=== PATIENT | male | born 1945 | race Caucasian/White ===

== ENCOUNTER 2017-06-09 10:47 | Emergency (ER) | payer MEDICARE, BC ==
[2017-06-09 11:34] VITALS: BP 150/106
[2017-06-09] MEDS ORDERED: HYDROcodone/ACETAMIN 5-325 MG* 1 TAB PO ONE (11:45)
[2017-06-09] MEDS ORDERED: Lidocaine 2% PF * 5 ML VIAL INJ ONE (12:50)
--- NOTE | 2017-06-09 13:19 | RAD ---
INDICATION: Laceration distal forearm/wrist COMPARISON: None TECHNIQUE: AP, lateral, and oblique views were obtained. FINDINGS: There is no acute fracture or focal bony lesion. The articular relationships are maintained. There is a laceration about the radial and volar aspect of the distal forearm and wrist. There is no foreign body. IMPRESSION: NO FRACTURE OR FOREIGN BODY.
--- NOTE | 2017-06-09 14:41 | UC ---
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 INJURY IS VERY PAINFUL. 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 LAST TETANUS SHOT 5YRS AGO. - History Of Current Complaint Chief Complaint: UCLaceration Stated Complaint: WRIST LAC Time Seen by Provider: 06/09/17 12:30 Hx Obtained From: Patient, Family/Teacher Specialist Laceration Location: Wrist - LEFT WRIST Mechanism Of Injury: Sharp Trauma Onset/Duration: Sudden Onset Severity: Moderate Aggravating Factors: Movement Related History: Dominant Hand Right - Allergies/Home Medications Allergies/Adverse Reactions: Allergies Allergy/AdvReac Type Severity Reaction Status Date / Time No Known Allergies Allergy Verified 06/09/17 11:34 PMH/Surg Hx/FS Hx/Imm Hx Previously Healthy: Yes - Surgical History Surgical History: Yes Surgery Procedure, Year, and Place: MENSICUS REPAIRS RIGHT AND LEFT SIDE, HEEL SCREWS LEFT FOOT - Family History Known Family History: Positive: None Negative: Blood Disorder - Social History Occupation: Retired Lives: With Family Alcohol Use: Rare Substance Use Type: None, Prescribed Substance Use Comment - Amount & Last Used: OXYCODONE AT 0700 Smoking Status (MU): Former Smoker Amount Used/How Often: 1 PPD X 14 YEARS Have You Smoked in the Last Year: No When Did the Patient Quit Smoking/Using Tobacco: 1974 Review of Systems Constitutional: Negative Skin: Other - LACERATION LEFT WRIST RADIAL ASPECT Eyes: Negative ENT: Negative Respiratory: Negative Cardiovascular: Negative Gastrointestinal: Negative Genitourinary: Negative Motor: Negative Neurovascular: Negative Musculoskeletal: Negative Neurological: Paresthesia, Numbness - LEFT THUMB Psychological: Negative All Other Systems Reviewed And Are Negative: Yes Physical Exam Triage Information Reviewed: Yes Appearance: Well-Appearing, No Pain Distress, Well-Nourished Vital Signs: Initial Vital Signs Pulse 83 06/09/17 11:30 Resp 20 06/09/17 11:30 BP 150/106 06/09/17 11:30 Pulse Ox 97 06/09/17 11:30 Vital Signs Reviewed: Yes Eye Exam: Normal ENT Exam: Normal ENT: Positive: Normal ENT inspection, Hearing grossly normal, TMs normal Dental Exam: Normal Neck exam: Normal Neck: Positive: Supple, Nontender, No Lymphadenopathy Respiratory Exam: Normal Respiratory: Positive: Chest non-tender, Lungs clear, Normal breath sounds, No respiratory distress Cardiovascular Exam: Normal Cardiovascular: Positive: RRR, No Murmur, Pulses Normal Abdominal Exam: Normal Musculoskeletal Exam: Normal Musculoskeletal: Positive: Strength Intact, ROM Intact, No Edema Neurological: Positive: Other: - PROXIMAL TO LACERATION, PAIN OUT OF PROPORTION TO SIMPLE LACERATION, POSSIBLE NERVE INJURY. FULL ROM. NUMBNESS IN LEFT THUMB. Psychological Exam: Normal Skin: Positive: Other - 5cm LACERATION LEFT WRIST RADIAL ASPECT Laceration Repair - Laceration Repair 1 Description: Linear Laceration Size After Repair: Length (cm) - 5, Width (mm) - 10, Depth (mm) - 12 Type Injection: Local Anesthesia Used: 2.0% Lido Cleansing Completed Via Routine Prep: Yes Irrigation With Pressure Irrigation Device: Yes Closure Material: Sutures - 7 Closure Method: Single Layer Suture Of: Skin, SQ Suture Type: Prolene Laceration Course/Dx - Course/Dx Course Of Treatment: PROXIMAL TO LACERATION, PAIN OUT OF PROPORTION TO SIMPLE LACERATION, POSSIBLE NERVE INJURY. FULL ROM. NUMBNESS IN LEFT THUMB. - Differential Dx - Laceration/Wound Differental Diagnoses: Cellulitis, Joint Infection, Laceration Provider Diagnoses: LEFT WRIST LACERATION; POSSIBLE NERVE INJURY - Physician Notification/Consults Instructed by Provider To: Have Pt Call For Appt. Discharge - Discharge Plan Condition: Stable Disposition: HOME Prescriptions: HYDROcodone/ACETAMIN 5-325 MG* [[place] 5-325 TAB*] 1 tab PO Q8H PRN #12 tab MDD THREE TABS PRN Reason: Pain Patient Education Materials: Care For Your Stitches (ED), Laceration (ED) Referrals: Rajinder Cortes MD [Medical Doctor] - Ilsa Abdullahi NP [Primary Care Provider] - Willy Hansen MD [Medical Doctor] - As Soon As Possible Additional Instructions: PLEASE HAVE SUTURES REMOVED IN TEN DAYS
== END 2017-06-09 14:30 | disposition home or self-care (01) ==
LOC: UCEAST 10:47
DX: S61.512A Laceration without foreign body of left wrist, initial encounter (principal); W26.1XXA Contact with sword or dagger, initial encounter; Y93.9 Activity, unspecified; Y99.9 Unspecified external cause status
CPT/HCPCS: 12002; 99212; G0463

== ENCOUNTER 2017-07-17 11:16 | Emergency (ER) | payer MEDICARE ==
[2017-07-17 11:26] VITALS: BP 167/111
[2017-07-17] MEDS ORDERED: Lidocaine 2% W/EPI 1:100,000* 20 ML MDV INJ ONE (11:46)
[2017-07-17] MEDS ORDERED: Lidocaine 2% W/EPI 1:100,000* 20 ML MDV ONE (11:47)
--- NOTE | 2017-07-17 12:16 | UC ---
Laceration HPI - History Of Current Complaint Chief Complaint: UCHeadInjury Stated Complaint: HEAD LACERATION Time Seen by Provider: 07/17/17 11:25 Hx Obtained From: Patient Laceration Location: Head Mechanism Of Injury: Sharp Trauma Severity: Mild Pain Intensity: 3 Pain Scale Used: 0-10 Numeric Aggravating Factors: Nothing Related History: Dominant Hand Right - Allergies/Home Medications Allergies/Adverse Reactions: Allergies Allergy/AdvReac Type Severity Reaction Status Date / Time No Known Allergies Allergy Verified 07/17/17 11:26 PMH/Surg Hx/FS Hx/Imm Hx Previously Healthy: Yes Other History Of: Hepatitis C - Surgical History Surgical History: Yes Surgery Procedure, Year, and Place: MENSICUS REPAIRS RIGHT AND LEFT SIDE, HEEL SCREWS LEFT FOOT - Family History Known Family History: Positive: None Negative: Blood Disorder - Social History Alcohol Use: Rare Substance Use Type: None, Prescribed Substance Use Comment - Amount & Last Used: OXYCODONE AT 0700 Smoking Status (MU): Former Smoker Amount Used/How Often: 1 PPD X 14 YEARS Have You Smoked in the Last Year: No When Did the Patient Quit Smoking/Using Tobacco: 1973 - Immunization History Most Recent Tetanus Shot: 2011 Review of Systems Constitutional: Negative Skin: Negative Eyes: Negative ENT: Negative Respiratory: Negative Cardiovascular: Negative Gastrointestinal: Negative Genitourinary: Negative Motor: Negative Neurovascular: Negative Musculoskeletal: Negative Neurological: Negative Psychological: Negative Is Patient Immunocompromised?: No All Other Systems Reviewed And Are Negative: Yes Physical Exam Triage Information Reviewed: Yes Appearance: Well-Appearing, No Pain Distress, Well-Nourished Vital Signs: Initial Vital Signs Temp 98.6 F 07/17/17 11:20 Pulse 78 07/17/17 11:20 Resp 18 07/17/17 11:20 BP 167/111 07/17/17 11:20 Pulse Ox 98 07/17/17 11:20 Vital Signs Reviewed: Yes Eyes: Positive: Conjunctiva Clear ENT: Positive: Hearing grossly normal. Negative: Nasal congestion, Nasal drainage, Trismus, Muffled/hoarse voice Respiratory: Positive: Lungs clear, Normal breath sounds, No respiratory distress Cardiovascular: Positive: RRR, No Murmur Musculoskeletal: Positive: ROM Intact, No Edema Neurological: Positive: Alert, Other: - left thumb numb-recent machete laceration Psychological Exam: Normal Skin Exam: Other - scalp lac Laceration Repair - Laceration Repair 1 Description: Linear Laceration Size After Repair: Length (cm) - 3, Width (mm) - 3, Depth (mm) - 3-4 Modified For Repair: No Type Injection: Local Anesthesia Used: 2.0% Lido Additive Used (in ml): Epi Cleansing Completed Via Routine Prep: Yes Irrigation With Pressure Irrigation Device: Yes Closure Material: Sutures Closure Method: Single Layer Suture Of: Skin - 4 5-0 nylon sutures Suture Type: Nylon Laceration Course/Dx - Differential Dx - Laceration/Wound Provider Diagnoses: scalp laceration. 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 Discharge - Discharge Plan Condition: Stable Disposition: HOME Patient Education Materials: Laceration (ED) Referrals: Gabby Estevez MD [Medical Doctor] - As Soon As Possible (about your nerve laceration) Additional Instructions: you may shower apply thin film of antibiotic ointment I like aquaphor healing ointment or polysporin sutures should be removed in about a week I suspect you lacerated a nerve last month (a branch of your radial nerve) and I suggest you see a hand specialist about this BP high today...probably due to being angry recheck at your next visit with your provider Images Head: 1 - curvalinear laceration
== END 2017-07-17 12:28 | disposition home or self-care (01) ==
LOC: UCEAST 11:16
DX: S01.01XA Laceration without foreign body of scalp, initial encounter (principal); S64.22XA Injury of radial nerve at wrist and hand level of left arm, initial encounter; W26.9XXA Contact with unspecified sharp object(s), initial encounter; Y93.9 Activity, unspecified; Y92.9 Unspecified place or not applicable; Z87.891 Personal history of nicotine dependence
CPT/HCPCS: 12002; 99211; G0463

== ENCOUNTER 2019-03-27 05:39 | Day surgery (SDC) | payer MEDICARE ==
[2019-03-27] MEDS ORDERED: Acetaminophen TAB* 325 MG ONE ×2 (05:55→08:57)
[2019-03-27] MEDS ORDERED: ceFAZolin 2 GM PREMIX in ORs 2 GM/50 ML BAG ONE (05:57)
[2019-03-27] MEDS ORDERED: Bupivacaine 0.5%* 50 ML VIAL ONE (06:59)
[2019-03-27] MEDS ORDERED: Lidocaine 2% PF* 10 ML AMP ONE (06:59)
[2019-03-27] MEDS ORDERED: Lidocaine 2% PF * 5 ML VIAL ONE (07:09)
[2019-03-27] MEDS ORDERED: fentaNYL* 50 MCG/ML 2 ML VIAL (100 MCG VIAL) ONE ×4 (07:09→09:35)
[2019-03-27] MEDS ORDERED: Midazolam* 1 MG/ML 2 ML VIAL (2 MG) ONE (07:09)
[2019-03-27] MEDS ORDERED: Propofol* 10 MG/ML 20 ML BTL ONE (07:09)
[2019-03-27] MEDS ORDERED: Propofol* 500 MG/50 ML BTL ONE (07:42)
[2019-03-27] MEDS ORDERED: Labetalol IV* 5 MG/ML 20 ML VIAL ONE (08:11)
[2019-03-27] MEDS ORDERED: oxyCODONE TAB* 5 MG TAB ONE (08:56)
[2019-03-27] MEDS ORDERED: Ketorolac INJ* 30 MG/ML 1 ML VIAL ONE (08:57)
[2019-03-27 10:14] VITALS: BP 150/89
--- NOTE | 2019-03-27 21:11 | OP ---
DATE OF OPERATION: 03/27/19 - [facility] DATE OF : 49 SURGEON: Kai Gloria MD LEGAL SECRETARY: Arianne Ritchie PA-C PRE-OP DIAGNOSIS: Painful left heel screws from previous subtalar fusion and lateral fibular bone spur. POST-OP DIAGNOSIS: Painful left heel screws from previous subtalar fusion and lateral fibular bone spur. OPERATIVE PROCEDURE: Shaving a bone spur, left distal fibula, and removal of the heel screws, left foot. DESCRIPTION OF PROCEDURE: The patient was taken to the operating room where local anesthesia was placed around his foot after the IV sedation. We made a 2- cm incision at the distal fibula directly over the distal fibular bone where rongeur was used to remove the prominent osteophyte. This area was closed with Monocryl and nylon sutures. The heel wound was opened about 3 cm in length directly over the insertion point of the heel screws. The screws were cannulated with the guide pin and then removed with 7.3-mm screwdriver. There was a good deal of bone purchase at this point and the bone threads had some difficulty backing up, but we were able to remove them routinely. We then irrigated this wound and closed with Monocryl and Prolene sutures. [id number]/[facility] #: [id number] [facility] CENTERFransisco
== END 2019-03-27 10:27 | disposition home or self-care (01) ==
LOC: OR 05:39
PROVIDERS: ATTEND Orthopaedic Surgery
DX: Z45.89 Encounter for adjustment and management of other implanted devices (principal); M79.672 Pain in left foot
CPT/HCPCS: 88300; A9270-GY; C1776; J0690; J1885; J2001; J2250; J2704; J3010; J3490

== ENCOUNTER 2024-07-20 07:59 | Observation (INO) ==
[~2024-07-20 07:59] MED LIST: Metoclopramide 5 MG/ML VIAL (10 mg) IV PRN; NS 0.45% 1000 ml BAG 1,000 ML IV SCH; Naloxone 0.4 mg VIAL 0.4 mg/ml 1 ml VIAL IV PRN; Ondansetron 4 mg VIAL 2 MG/ML 2 ml VIAL IV PRN
[2024-07-20] MEDS ORDERED: ceFAZolin 2 GM PREMIX 2 GM/50 ML BAG ONE (08:09)
[2024-07-20] MEDS ORDERED: Tranexamic Acid 1 GM/100ML BAG 2,000 MG/200 ML BAG IV ONE (08:09)
[2024-07-20] MEDS: Buffered Lidocaine 1% SYRIN 1 ml INTRADERM ONE (08:23)
[2024-07-20] MEDS: Scopolamine 1 mg/72hr PATCH TRANSDERM ONE (08:23)
[2024-07-20 08:42] LABS: Rapid COVID-19 Molecular Undetected (Undetected)
[2024-07-20] MEDS ORDERED: Dexamethasone IV 4 MG/ML VIAL 1 ml VIAL ONE (08:44)
[2024-07-20] MEDS ORDERED: ROPIVACAINE 5 MG/ML 30 ML BTL (0.5%) ONE ×2 (08:44→10:24)
[2024-07-20] MEDS ORDERED: Midazolam 2 mg/2 ml VIAL 1 mg/ml 2 ml VIAL (2 mg) ONE (08:44)
[2024-07-20] MEDS: Lactated Ringers 1000 ml BAG 1,000 ML IV SCH ×2 (08:51→17:47)
[2024-07-20] MEDS ORDERED: Albuterol/Ipratropium NEB.SOL (2.5/0.5 MG) 3 ML NEB.SOLN ONE (09:13)
[2024-07-20] MEDS ORDERED: fentaNYL 250 mcg/5 ml 50 MCG/ML 5 ml VIAL (250 MCG) ONE (11:15)
[2024-07-20] MEDS ORDERED: Lidocaine 2% PF 5 ML VIAL ONE (11:15)
[2024-07-20] MEDS ORDERED: Propofol 10 MG/ML 20 ML BTL ONE ×2 (11:15→12:20)
[2024-07-20] MEDS ORDERED: HYDROmorphone 0.5 MG/0.5 ML SYRINGE ONE ×2 (11:59→13:03)
[2024-07-20] MEDS ORDERED: fentaNYL 100 mcg/2 ml 50 MCG/ML VIAL ONE ×2 (14:45→15:06)
[2024-07-20] MEDS ORDERED: Ondansetron ODT 4 mg TAB 4 MG TAB PO PRN (14:45)
[2024-07-20] MEDS ORDERED: Magnesium Hydroxide LIQ 30 ML UDC PO PRN (14:45)
[2024-07-20] MEDS ORDERED: Ondansetron 4 mg VIAL 2 MG/ML 2 ml VIAL IV PRN (14:45)
[2024-07-20] MEDS ORDERED: Lactulose 30 ml UDC PO PRN (14:45)
[2024-07-20] MEDS ORDERED: Morphine 2 MG/ML SYRINGE IV PRN (14:45)
[2024-07-20] MEDS ORDERED: Calcium Carb (TUMS) 500 mg CHEW TAB PO PRN (14:45)
[2024-07-20] MEDS: fentaNYL 100 mcg/2 ml 50 MCG/ML VIAL IV PRN (14:49)
[2024-07-20] MEDS ORDERED: hydrALAZINE 20 mg/ml 1 ML Vial IV ONE (16:04)
[2024-07-20] MEDS: hydrALAZINE 20 mg/ml 1 ML Vial IV IV SLOW PU ONE (16:07)
[2024-07-20] MEDS ORDERED: HYDROmorphone 1 MG/1 ML SYRINGE IV SLOW PU PRN (16:10)
[2024-07-20] MEDS ORDERED: hydrALAZINE 20 mg/ml 1 ML Vial IV IV SLOW PU PRN (16:11)
[2024-07-20] MEDS ORDERED: HYDROmorphone 1 MG/1 ML SYRINGE ONE (16:21)
[2024-07-20] MEDS: HYDROmorphone 1 MG/1 ML SYRINGE IV SLOW PU ONE (16:22)
[2024-07-20] MEDS: Albuterol/Ipratropium NEB.SOL (2.5/0.5 MG) 3 ML NEB.SOLN INH ONE (17:46)
[2024-07-20] MEDS: Acetaminophen IV 1 GM/100ML 1,000 MG/100 ML BAG IV ONE (17:46)
[2024-07-20] MEDS: ceFAZolin 2 GM PREMIX 2 GM/50 ML BAG IV SCH ×2 (17:47→20:13)
[2024-07-20] MEDS: Magnesium Hydroxide LIQ 30 ML UDC PO SCH (20:46)
[2024-07-21] MEDS: Mometasone/Formoter 200/5 MDI INH SCH (02:40)
[2024-07-21 06:49] LABS: Hematocrit 37.6 % (38-53); Mean Platelet Volume 8.4 fL (7.5-11.2); Platelet Count 188 10^3/uL (150-450)
[2024-07-21 07:07] LABS: Calcium 8.8 mg/dL (8.6-10.3); Creatinine, Serum 1.13 mg/dL (0.67-1.17); Potassium 4.3 mmol/L (3.5-5.0); eGFR CKD-EPI 67.4 (>60)
[2024-07-21] MEDS: Vitamin THERAPEUTIC TAB PO SCH (08:30)
[2024-07-21 11:04] VITALS: BP 143/76
== END 2024-07-21 13:10 | disposition home or self-care (01) ==
LOC: OR 07:59 → SSU 07:59
PROVIDERS: ADMIT Orthopaedic Surgery Adult Reconstructive Orthopaedic Surgery; ATTEND Orthopaedic Surgery Adult Reconstructive Orthopaedic Surgery